=== PATIENT | female | born 1990 | race Caucasian/White ===

== ENCOUNTER 2016-03-24 10:29 | Inpatient (IN) | payer OTHER ==
[~2016-03-24] VITALS: Ht 149.9 cm; Wt 64.0 kg
[2016-03-24 10:44] VITALS: BP 101/58
[2016-03-24] MEDS ORDERED: PRENTAB9 PO (11:09)
--- NOTE | 2016-03-24 11:28 | HPEPDOC ---
Obstetrical History & Physical General Date of Admission Mar 24, 2016 at 10:29 History of Present Illness 25 yo @ 41+1 by LMP([id number]) presents to L&D for scheduled IOL. Denies CTX, DFM, LOF and VB. GBS negative. Chief Complaint: Induction of labor Information Provided By: Patient Age: 25 : 2 Term: 0 Pre-term: 0 Abortions: 1 Livin Care Care: Good Care Number of Visits: 13 Dating Final EDC: Mar 16, 2016 Final EDC for Daily Update: Mar 16, 2016 Final EDC by: LMP LMP: June 10, 2015 Estimated Date of Confinement: Mar 16, 2016 EGA at Admission: 41.1 Antepartum Course Diagnos(e)s 1. Excessive weight gain 2. elevated 1 hour GTT-137; 3 hour normal 91/WRAPPING CLERK/141/135 Height (inches): 59 Pre- weight (lbs.): 100 Admission Weight (lbs.): 150 Change in Weight (lbs.): 51 Past Medical History Past Obstetrical History : Past Obstetrical History: Multigravida Date of Delivery: Feb 19, 2014 Gestation: 9 STACK ATTENDANT History: Spontaneous Past Medical History Medical History Eczema Surgical History: Denies/None Family History Significant Family History: No pertinent family hx Social History Marital Status: Family situation: Spouse/partner home Psychosocial History: No pertinent psych hx * Smoker: non-smoker Alcohol: denies Drugs: denies Abuse Violence Screening Have you been hit/kicked/slapp: No Have you been sexually assault: No Imunizations Tdap status: current ([id number]) Influenza Status: current ([id number]) Allergies Coded Allergies: No Known Drug Allergy (Verified Allergy, Unknown, 03/24/16) Medications Scheduled Multivitamins/ ( 27-0.8 mg) 1 Tab Tab 1 TAB PO DAILY Physical Examination Physical Examination GENERAL: AA&O x 3 BREAST: . ABDOMEN: Gravid and non-tender to touch. FETUS: VTX by SVE and by Alan. HEART RATE: RRR, no m/r/g LUNGS: CTA EXTREMITIES: +1 edema. No clonus. DTR +2 Laboratory Data 24H LABS Laboratory Tests 2 03/24/16 10:43: Serology Scanned Report Hepatitis B Testing Pertinent Laboratoy Data Blood Type: O+ RBC Antibody Screen: Negative HIV: Negative Hepatitis B: Negative Hepatitis C: Unknown Rapid Plasma Reagin: Nonreactive Rubella: Immune Varicella: Immune Chlamydia/Gonorrhea: Negative Group B Streptococcus: Negative Quad Screen Test: Declined Cystic Fibrosis: Negative Glucose Tolerance Test: 137 Anatomy Ultrasound Ultrasound Date: Oct 28, 2015 Placenta Location: Anterior Normal Anatomy: Yes Placenta Previa: No Estimated Weight (grams): 270 Vaginal Examination Dilation: 1cm Effacement: 40-50% Station: -2 Cervical Consistency: Medium Cervical Position: Posterior Presentation: Cephalic presentation Position: Vertex (occiput) Assessment Heart Rate (FHR): 150 Variability: Moderate Accelerations: Present Decelerations: None Tocometer Contractions: No Strength: resting tone palp/soft Multi-drug resistant Organism: No history of MDRO Assessment/Plan Assessment 25 yo @ 41+1 by LMP([id number]) presents to L&D for scheduled IOL. Denies CTX, DFM, LOF and VB. GBS negative. Plan Admit and orient. Storage Facility Housekeeper and consent. Diet: Regular GBS- negative Labs and IV per protocol Counseled on cytotec vs goodman bulb and would like goodman bulb LR 1000 ml bolus, then 125 ml/hr Anticipate C-S as appropriate. STALIN GIBSON CNM Mar 24, 2016 11:28
[2016-03-24] MEDS ORDERED: LACTATED RINGER'S 1000 ML IV STA (11:31)
--- NOTE | 2016-03-24 11:48 | IPNPDOC ---
Obstetrical Progress Note Date of Service The patient was seen on 03/24/16 at 11:44. Progress Note [id number] @ 1145 25 yo @ 41+1 by LMP([id number]) presents to L&D for scheduled IOL. Denies CTX, DFM, LOF and VB. GBS negative. S: comfortable resting in bed with spouse at bedside. Denies CTX O: VS- WNL, afebrile FHR- 150, mod, + accels, no decels CTX- none SVE- 1/50/-2, post/med/vtx EFW-3600 grams Goodman bulb with 60 ml NS placed to traction A: 25 yo @ 41+1 by LMP([id number]) presents to L&D for scheduled IOL. CAT I FHR. P: continue to monitor and assess, reassess goodman bulb Q hour, reassess in 4 hours or prn. VS, I&O, 24H, Fishbone Laboratory Data 24H LABS Laboratory Tests 2 03/24/16 10:43: Serology Scanned Report Hepatitis B Testing STALIN GIBSON CNM Mar 24, 2016 11:48
[2016-03-24 12:34] LABS: MEAN CORPUSCULAR HEMOGLOBIN 31.3 pg (27.0-33.0); MEAN CORPUSCULAR HGB CONC 34.7 g/dl (32.0-36.5); MEAN CORPUSCULAR VOLUME 90.2 fl (80.0-96.0); RED CELL DISTRIBUTION WIDTH 14.2 % (11.5-14.5); WHITE BLOOD COUNT 5.3 K/mm3 (4.0-10.0)
[2016-03-24 12:40] VITALS: BP 122/77
[2016-03-24 14:00] VITALS: BP 112/59
--- NOTE | 2016-03-24 15:18 | IPNPDOC ---
Obstetrical Progress Note Date of Service The patient was seen on 03/24/16 at 15:13. Progress Note [id number] @ 1510 S: pt comfortable, walking halls throughout the day, just got into bed, spouse at bedside O: VS- WNL, afebrile FHR- 145, moderate variability, + accels, no decels CTX- single CTX noted on last FHR tracing, resting tone palpated as soft Goodman bulb assessed, still in cervical os, retaped to traction A: 25 yo @ 41+1 by LMP([id number]) here for scheduled IOL d/t pending post-dates. CAT I FHR. P: continue to monitor and assess, reassess goodman bulb Q 1 hour, continue to perform intermittent monitoring as long as FHR tracing is CAT I, reassess in 4 hours or prn. Remove goodman 2335 if not out, once goodman out start pitocin VS, I&O, 24H, Fishbone Vital Signs/I&O Vital Signs Date Time Temp Pulse Resp B/P Pulse Ox O2 Delivery O2 Flow Rate FiO2 03/24/16 14:00 98.6 75 18 112/59 Laboratory Data 24H LABS Laboratory Tests 2 03/24/16 10:43: Serology Scanned Report Hepatitis B Testing 03/24/16 12:08: Syphilis Serology NONREACTIVE CBC/BMP Laboratory Tests 03/24/16 12:08 Red Blood Count 3.60 L, Mean Corpuscular Volume 90.2, Mean Corpuscular Hemoglobin 31.3, Mean Corpuscular Hemoglobin Concent 34.7, Red Cell Distribution Width 14.2 STALIN GIBSON CNM Mar 24, 2016 15:18
[2016-03-24 15:46] VITALS: BP 114/71
[2016-03-24 16:48] VITALS: BP 102/66
[2016-03-24 17:52] VITALS: BP 114/70
[2016-03-24] MEDS ORDERED: LR 1,000 ML IV SCH (19:06)
[2016-03-24] MEDS ORDERED: OXYTOCIN DRIP 30 UNITS in APPROPRIATE DILUENT 1 EA IV SCH (19:15)
--- NOTE | 2016-03-24 19:21 | IPNPDOC ---
Obstetrical Progress Note Date of Service The patient was seen on 03/24/16 at 19:18. Progress Note [id number] @ 1905 S: pt comfortable, walking halls throughout the day, just went to the bathroom, spouse at bedside O: VS- WNL, afebrile FHR- 145, moderate variability, + accels, no decels CTX- intermittent irregular CTX, lasting <90 sec Gordon out intact A: 25 yo @ 41+1 by LMP([id number]) here for scheduled IOL d/t pending post-dates. CAT I FHR. P: continue to monitor and assess, reassess in 2 hours or prn, initiate pitocin IOL per unit protocol, epidural when pt is ready Report given to Dr. Benitez @ 1930 VS, I&O, 24H, Chloé Vital Signs/I&O Vital Signs Date Time Temp Pulse Resp B/P Pulse Ox O2 Delivery O2 Flow Rate FiO2 03/24/16 18:27 98.1 03/24/16 17:52 78 18 114/70 Laboratory Data 24H LABS Laboratory Tests 2 03/24/16 10:43: Serology Scanned Report Hepatitis B Testing 03/24/16 12:08: Syphilis Serology NONREACTIVE CBC/BMP Laboratory Tests 03/24/16 12:08 Red Blood Count 3.60 L, Mean Corpuscular Volume 90.2, Mean Corpuscular Hemoglobin 31.3, Mean Corpuscular Hemoglobin Concent 34.7, Red Cell Distribution Width 14.2 STALIN GIBSON CNM Mar 24, 2016 19:20
[2016-03-24] MEDS ORDERED: FENTANYL 2MCG/ML ROPIVACAINE 0.2% NACL 250 ML CADD As Ordered ONE (21:25)
[2016-03-24] MEDS ORDERED: ONDANSETRON 4MG/2ML VIAL (J2405) IV PRN (22:45)
[2016-03-24] MEDS ORDERED: EPIDURAL/PCA KEYS XX PRN (22:45)
[2016-03-24] MEDS ORDERED: LACTATED RINGER'S 1000 ML IV PRN (22:45)
[2016-03-24] MEDS ORDERED: EPIDURAL COMMENT XX SCH (22:45)
[2016-03-24] MEDS ORDERED: diphenhydrAMINE INJ 50MG/ML VIAL (J1200) IV PRN (22:45)
[2016-03-24] MEDS ORDERED: NALOXONE INJ 0.4 MG/1 ML VIAL (J2310) IV PRN (22:45)
[2016-03-24] MEDS ORDERED: REFRIGERATOR IV KEYS XX PRN (22:45)
[2016-03-24] MEDS ORDERED: FENTANYL/ROPIVACAINE/NACL CADD 250 ML EPIDURAL SCH (22:45)
[2016-03-25] VITALS (7 sets, daily range): BP systolic 107–133; BP diastolic 53–71
--- NOTE | 2016-03-25 00:05 | IPNPDOC ---
Text Note Date of Service The patient was seen on 03/25/16. NOTE Assumed care 1930 after SBAR from COLLETTE Contreras. IOL at 41+1. Chart reviewed. NST Cat 2 with many early's, some variables and a rare isolated late decel. Mod variab throughout however. Pit decreased ~30 min ago from 10 to 4 mu/min. RN Cx check at 2230 with SROM (clr) was 6 cm. Cx now 6-7/80/-1, can stretch to 8 cm however. My plan is to recheck at 0200, sooner prn. If no signif change will place an IUPC to assist with pit mgmt. Sessions VS,Chloé, I+O VS, Chloé I+O Laboratory Tests 03/24/16 12:08 Red Blood Count 3.60 L, Mean Corpuscular Volume 90.2, Mean Corpuscular Hemoglobin 31.3, Mean Corpuscular Hemoglobin Concent 34.7, Red Cell Distribution Width 14.2 Vital Signs Date Time Temp Pulse Resp B/P Pulse Ox O2 Delivery O2 Flow Rate FiO2 03/24/16 18:27 98.1 03/24/16 17:52 78 18 114/70 I&O- Last 24 Hours up to 6 AM 03/25/16 06:00 Intake Total 462 ml Balance 462 ml SESSIONS,ALBIN Mitchell MD Mar 25, 2016 00:05
--- NOTE | 2016-03-25 03:04 | IPNPDOC ---
Text Note Date of Service The patient was seen on 03/25/16. NOTE NST Cat 1, no issues like previously now that pitocin completely off, has cont' d to contract regularly. Cx 8-9/100/-1 Straight OA recheck in ~2 hrs, sooner prn Sessions VS,Chloé, I+O VS, Chloé I+O Laboratory Tests 03/24/16 12:08 Red Blood Count 3.60 L, Mean Corpuscular Volume 90.2, Mean Corpuscular Hemoglobin 31.3, Mean Corpuscular Hemoglobin Concent 34.7, Red Cell Distribution Width 14.2 Vital Signs Date Time Temp Pulse Resp B/P Pulse Ox O2 Delivery O2 Flow Rate FiO2 03/24/16 18:27 98.1 03/24/16 17:52 78 18 114/70 I&O- Last 24 Hours up to 6 AM 03/25/16 06:00 Intake Total 462 ml Balance 462 ml SESSIONS,ALBIN Mitchell MD Mar 25, 2016 03:04
[2016-03-25] MEDS ORDERED: AMPICILLIN SOD/SULBACTAM SOD 3 GM in D5W MINI-BAG PLUS 100 ML IV SCH (04:00)
[2016-03-25] MEDS ORDERED: ACETAMINOPHEN 500 MG TAB PO ONE (04:15)
--- NOTE | 2016-03-25 05:18 | IPNPDOC ---
Text Note Date of Service The patient was seen on 03/25/16. NOTE Now with fevers, started on Unasyn and also given 975 mg Tylenol NST Cat 2 with tachycardia 170-180's, mostly mod sly, rare random decel Cx 9/100/0 a/p: Possible arrest of dilation and FHT does not allow me to augment her labor with pitocin unfortunately. D/W her that if in 1 hr this cx is still present will need a delivery, possibly sooner if FHT dictates. Watching the FHT closely. Stated understanding. Sessions VS,Chloé, I+O VS, Chloé I+O Laboratory Tests 03/24/16 12:08 Red Blood Count 3.60 L, Mean Corpuscular Volume 90.2, Mean Corpuscular Hemoglobin 31.3, Mean Corpuscular Hemoglobin Concent 34.7, Red Cell Distribution Width 14.2 Vital Signs Date Time Temp Pulse Resp B/P Pulse Ox O2 Delivery O2 Flow Rate FiO2 03/24/16 18:27 98.1 03/24/16 17:52 78 18 114/70 I&O- Last 24 Hours up to 6 AM 03/25/16 06:00 Intake Total 462 ml Balance 462 ml SESSIONS,ALBIN Mitchell MD Mar 25, 2016 05:18
--- NOTE | 2016-03-25 06:08 | IPNPDOC ---
Text Note Date of Service The patient was seen on 03/25/16. NOTE Cx check now with no change. Anteriorly is also now significzntly swollen. Consented for delivery due to arrest of dilation. See consent form. All ???'s answered. Sessions MD TERRY,Chloé, I+O VS, Chloé I+O Laboratory Tests 03/24/16 12:08 Red Blood Count 3.60 L, Mean Corpuscular Volume 90.2, Mean Corpuscular Hemoglobin 31.3, Mean Corpuscular Hemoglobin Concent 34.7, Red Cell Distribution Width 14.2 Vital Signs Date Time Temp Pulse Resp B/P Pulse Ox O2 Delivery O2 Flow Rate FiO2 03/24/16 18:27 98.1 03/24/16 17:52 78 18 114/70 I&O- Last 24 Hours up to 6 AM 03/25/16 06:00 Intake Total 462 ml Balance 462 ml SESSIONS,ALBIN Mitchell MD Mar 25, 2016 06:08
[2016-03-25] MEDS ORDERED: ceFAZolin 2 GM/D5W 50 ML IV BAG (J0690) As Ordered ONE (06:09)
[2016-03-25] MEDS ORDERED: BICITRA 30ML SOLN UDC As Ordered ONE (06:09)
[2016-03-25] MEDS ORDERED: BICITRA 30ML SOLN UDC PO ONE (06:15)
[2016-03-25] MEDS ORDERED: LIDOCAINE 2% W/EPIN INJ 20ML **PRES FREE As Ordered ONE (06:23)
[2016-03-25] MEDS ORDERED: OXYTOCIN INJ 10 UNITS/ML VIAL (J2590) As Ordered ONE ×3 (06:24→07:15)
[2016-03-25] MEDS ORDERED: ESMOLOL INJ 100MG/10ML VIAL As Ordered ONE (06:56)
[2016-03-25] MEDS ORDERED: PHENYLephrine HCL 500 MCG/5 ML (100MCG/ML) SYRINGE (J2370) As Ordered ONE (06:56)
[2016-03-25] MEDS ORDERED: MORPHINE PRES-FREE INJ 10 MG/10 ML VIAL (J2274) As Ordered ONE (07:04)
[2016-03-25] MEDS ORDERED: NALBUPHINE HCL 10 MG/ML AMP (J2300) IV PRN ×2 (07:05→08:00)
[2016-03-25] MEDS ORDERED: NALOXONE INJ 0.4 MG/1 ML VIAL (J2310) IV PRN ×2 (07:05)
[2016-03-25] MEDS ORDERED: ONDANSETRON 4MG/2ML VIAL (J2405) IV PRN ×2 (07:05→08:00)
[2016-03-25] MEDS ORDERED: METOCLOPRAMIDE INJ 10MG/2ML VIAL (J2765) IV PRN ×2 (07:05→08:45)
[2016-03-25] MEDS ORDERED: ONDANSETRON 4MG/2ML VIAL (J2405) As Ordered ONE (07:20)
[2016-03-25] MEDS ORDERED: METOCLOPRAMIDE INJ 10MG/2ML VIAL (J2765) As Ordered ONE (07:20)
[2016-03-25] MEDS ORDERED: KETOROLAC 60 MG/2 ML VIAL (J1885) As Ordered ONE (07:20)
[2016-03-25] MEDS ORDERED: MEPERIDINE 50 MG/ML 1ML VIAL (J2175) As Ordered ONE (07:22)
[2016-03-25 07:42] LABS: CORD GAS HCO3 V 21.2 MEQ/L; CORD GAS PCO2 V 36.1 mmHg; CORD GAS PH V 7.387 UNITS; CORD GAS PO2 V 27.5 mmHg; CORD GAS SBC V 21.1 MEQ/L; CORD GAS TCO2 V 22.3 MEQ/L
[2016-03-25 07:44] LABS: CORD GAS ABE A -2.8; CORD GAS HCO3 A 23.5 MEQ/L; CORD GAS O2 SAT A 51.2 %; CORD GAS PCO2 A 45.9 mmHg; CORD GAS PH A 7.327 UNITS; CORD GAS PO2 A 21.6 mmHg; CORD GAS TCO2 A 24.9 MEQ/L
[2016-03-25] MEDS ORDERED: PERCOCET 5MG/325MG TAB PO PRN ×2 (08:00→08:45)
[2016-03-25] MEDS ORDERED: HYDROmorphone HCL 1 MG/ML SYRINGE (J1170) IV PRN (08:00)
[2016-03-25] MEDS ORDERED: MEPERIDINE INJ 25 MG/ML VIAL (J2175) IV PRN (08:00)
[2016-03-25] MEDS ORDERED: LR 1,000 ML IV SCH (08:00)
[2016-03-25] MEDS ORDERED: fentaNYL 100 MCG/2 ML INJECTION (J3010) IV PRN (08:00)
[2016-03-25] MEDS ORDERED: diphenhydrAMINE INJ 50MG/ML VIAL (J1200) IV PRN (08:00)
[2016-03-25] MEDS ORDERED: RHOGAM 300 MCG (1500 IU) INJ (J2790) IM SCH (08:45)
[2016-03-25] MEDS ORDERED: MEASLES,MUMPS,RUBELLA VACCINE INJ (MMR-II) (90707) SC SCH (08:45)
[2016-03-25] MEDS: DOCUSATE SODIUM 100 MG CAP PO SCH ×2 (09:00→19:52)
[2016-03-25] MEDS: PRENATAL VITAMIN TAB PO SCH (09:00)
[2016-03-25] MEDS: AMPICILLIN SOD/SULBACTAM SOD 3 GM in D5W MINI-BAG PLUS 100 ML IV SCH ×3 (10:46→22:32)
[2016-03-25] MEDS: LR 1,000 ML IV SCH (10:46)
[2016-03-25] MEDS: CLINDAMYCIN 900 MG in APPROPRIATE DILUENT 1 EA IV SCH ×2 (11:46→18:57)
[2016-03-25] MEDS: KETOROLAC 30 MG/ML VIAL (J1885) IV SCH ×2 (14:12→19:52)
[2016-03-26] MEDS: LR 1,000 ML IV SCH (00:42)
[2016-03-26] MEDS: KETOROLAC 30 MG/ML VIAL (J1885) IV SCH ×2 (01:56→08:00)
[2016-03-26 02:00] VITALS: BP 95/50
[2016-03-26] MEDS: CLINDAMYCIN 900 MG in APPROPRIATE DILUENT 1 EA IV SCH (03:56)
[2016-03-26] MEDS: AMPICILLIN SOD/SULBACTAM SOD 3 GM in D5W MINI-BAG PLUS 100 ML IV SCH (05:03)
[2016-03-26 06:07] VITALS: BP 107/58
[2016-03-26 08:17] LABS: MEAN CORPUSCULAR HEMOGLOBIN 32.4 pg (27.0-33.0); MEAN CORPUSCULAR HGB CONC 35.3 g/dl (32.0-36.5); MEAN CORPUSCULAR VOLUME 91.8 fl (80.0-96.0); RED CELL DISTRIBUTION WIDTH 14.6 % (11.5-14.5); WHITE BLOOD COUNT 10.1 K/mm3 (4.0-10.0)
[2016-03-26] MEDS: DOCUSATE SODIUM 100 MG CAP PO SCH ×2 (08:26→21:00)
[2016-03-26] MEDS: PRENATAL VITAMIN TAB PO SCH (08:26)
[2016-03-26 10:00] VITALS: BP 116/65
[2016-03-26] MEDS: PERCOCET 5MG/325MG TAB PO PRN ×2 (10:44→19:01)
[2016-03-26] MEDS: IBUPROFEN 800 MG TAB PO SCH ×2 (10:45→19:01)
[2016-03-26 14:00] VITALS: BP 126/63
[2016-03-26] MEDS ORDERED: IBUPROFEN 800 MG TAB PO SCH (16:00)
[2016-03-26 18:20] VITALS: BP 127/60
[2016-03-26 22:15] VITALS: BP 124/62
[2016-03-27] MEDS: PERCOCET 5MG/325MG TAB PO PRN (01:34)
[2016-03-27] MEDS: IBUPROFEN 800 MG TAB PO SCH ×2 (02:53→11:19)
[2016-03-27 05:33] VITALS: BP 116/69
--- NOTE | 2016-03-27 08:40 | IPNPDOC ---
Text Note Date of Service The patient was seen on 03/27/16. NOTE Post-Op Day 2 Susanna is a 25yo [id number] doing well on post-op day 2 s/p uncomplicated PLTCS indicated for arrest of dilation in the setting of chorioamnionitis at 41w1d when undergoing induction of labor for late term gestation. in NICU to receive antibiotics. She is breast pumping without issue. Lochia normal , spontaneously voiding and ambulating without difficulty. Tolerating regular diet. Denies f/c/n/v/SOB/CP/FARFAN/abdominal pain. Vitals wnl, afebrile Exam: General: WDWN, NAD, resting comfortably Cardiac: S1S2 present, no murmur Lungs: CTAB without wheeze/crackles Abdomen: soft, NTTP, fundus firm u-2cm, pfannensteil intact with steri strips overlying with no surrounding erythema, no drainage Extremities: no tenderness of calves bilaterally Labs: 03/24: H/H 11.3/32.5 03/26: H/H 8.6/24.2 Assessment: Susanna is a 25yo [id number] doing well on post-op day 2 s/p uncomplicated PLTCS indicated for arrest of dilation in the setting of chorioamnionitis at 41w1d when undergoing induction of labor for late term gestation. Vitals wnl, benign exam. No e/o infection, hemodynamically stable. Plan: -discharge to home today vs boarding if infant remains in NICU -Home meds given: percocet, ibuprofen, dibucaine, colace, lanolin, minipill for contraception -Regular diet -Encourage Dr. Nikki Farfan MD [place] HARRY VS,Fishbone, I+O VS, Fishbone, I+O Vital Signs Date Time Temp Pulse Resp B/P Pulse Ox O2 Delivery O2 Flow Rate FiO2 03/27/16 05:33 97.4 70 16 116/69 03/26/16 22:15 99 03/26/16 18:20 Room Air I&O- Last 24 Hours up to 6 AM 03/27/16 06:00 Output Total 350 ml Balance -350 ml NIKKI FARFAN MD Mar 27, 2016 08:40
--- NOTE | 2016-03-27 08:53 | DS.PDOC ---
Discharge Summary General Date of Admission Mar 24, 2016 at 10:29 Date of Discharge Mar 27, 2016 Attending Physician: MIMI FARFAN MD Discharge Summary PROCEDURES PERFORMED DURING STAY: Primary Low Transverse Section COMPLICATIONS/CHIEF COMPLAINT: Induction of labor for late term gestation ADMISSION DIAGNOSES: 1. Late term gestation at 41w1d 2. Arrest of dilation 3. Chorioamnionitis DISCHARGE DIAGNOSES: 1. Late term gestation at 41w1d 2. Arrest of dilation 3. Chorioamnionitis HISTORY OF PRESENT ILLNESS/HOSPITAL COURSE: Susanna is a 25yo [id number] doing well on post-op day 2 s/p uncomplicated PLTCS indicated for arrest of dilation in the setting of chorioamnionitis at 41w1d when undergoing induction of labor for late term gestation. Benign post- operative course. currently in NICU for antibiotics related to chorioamnionitis. Vitals normal, benign exam. No evidence of infection, hemodynamically stable. Ready for discharge. DISCHARGE MEDICATIONS: percocet, ibuprofen, dibucaine, colace, lanolin, minipill for contraception ALLERGIES: Please see below. PHYSICAL EXAMINATION ON DISCHARGE: Vitals wnl, afebrile Exam: General: WDWN, NAD, resting comfortably Cardiac: S1S2 present, no murmur Lungs: CTAB without wheeze/crackles Abdomen: soft, NTTP, fundus firm u-2cm, pfannensteil intact with steri strips overlying with no surrounding erythema, no drainage Extremities: no tenderness of calves bilaterally LABORATORY DATA: Labs: 03/24: H/H 11.3/32.5 03/26: H/H 8.6/24.2 IMAGING: none VTE Prophylaxis ordered?: none required DISCHARGE CONDITION: Stable DISPOSITION: home vs boarding while is in the NICU ACTIVITY: vaginal rest x 6 weeks DIET: regular DISCHARGE PLAN AND INSTRUCTIONS: Discharge to home vs boarding with follow up visit for incision check in 2 weeks and then routine post- visit in 6 weeks Return to clinic or ER for fevers/chills/vomiting/vaginal bleeding more than 1 heavy pad per hour, pain that is increasing despite pain medications TIME SPENT ON DISCHARGE: Greater than [address] Mimi Farfan MD [place] [facility] Vital Signs/I&Os Vital Signs Date Time Temp Pulse Resp B/P Pulse Ox O2 Delivery O2 Flow Rate FiO2 03/27/16 05:33 97.4 70 16 116/69 03/26/16 22:15 99 03/26/16 18:20 Room Air I&O- Last 24 Hours up to 6 AM 03/27/16 06:00 Output Total 350 ml Balance -350 ml Medications Scheduled Multivitamins/ ( 27-0.8 mg) 1 Tab Tab 1 TAB PO DAILY Allergies Coded Allergies: No Known Drug Allergy (Verified Allergy, Unknown, 03/24/16) MIMI FARFAN MD Mar 27, 2016 08:53
[2016-03-27] MEDS: PRENATAL VITAMIN TAB PO SCH (08:57)
[2016-03-27] MEDS: DOCUSATE SODIUM 100 MG CAP PO SCH (08:57)
[2016-03-27] MEDS ORDERED: COLA100C PO (09:15)
[2016-03-27] MEDS ORDERED: IBUP-1114 PO (09:16)
[2016-03-27] MEDS ORDERED: OXYC1TAB23 PO (09:17)
--- NOTE | 2016-03-27 09:32 | RO ---
DATE OF PROCEDURE: 03/25/2016 PREPROCEDURE DIAGNOSES: Arrest of dilation at 9 cm with condition of inability to augment, also meconium and chorioamnionitis present. POSTPROCEDURE DIAGNOSES: Arrest of dilation at 9 cm with condition of inability to augment, also meconium and chorioamnionitis present. PROCEDURE: Primary delivery. SURGEON: Dr. Greg Benitez. CARDIOLOGY PHYSICIAN ASSISTANT: Ms. Ginna Swartz, electroencephalograph technician. ANESTHESIA: Epidural with Duramorph. ESTIMATED BLOOD LOSS: 700 mL. DRAINS: 125 mL of clear urine in the Gordon catheter. FLUID REPLACED: 1500 mL of lactated ringers. SPECIMENS: Cord gases and placenta. INDICATION FOR PROCEDURE: Patient made steady progress up until 8-9 cm at which point, she never progressed past 9 over a several hour time span. Along the course of her labor, her Pitocin had been started, decreased and eventually stopped due to heart tracing signs that did not allow for continued Pitocin administration. When the Pitocin was off, the did well other than a tachycardia which was noted when mother also developed a fever. Approximately 1 hour before deciding for sure on the need for , the patient was 9 cm and zero station and given her exam likely would have responded well to Pitocin, however, with the tachycardia present, I could not proceed forward with Pitocin augmentation. Despite Pitocin not being on board, the patient continued to contract regularly every 2 minutes and after 1 hour of watching the tracing closely, there was no change and the anterior lip of the cervix was significantly swollen which had not been present an hour prior. delivery was recommended. Informed consent was obtained. All the patient's questions were answered and she was taken to the operating room once all preparations were made. DESCRIPTION: Gordon catheter was already in place. She was placed in dorsal supine position with a leftward tilt. Legs were strapped. Patient was then prepped and draped in normal sterile fashion. After confirming that the epidural was working adequately, a Pfannenstiel skin incision was carried down to the layer of the fascia which was nicked in the midline and extended bilaterally the extent of the skin incision. Using Carisa clamps, the superior aspect of the fascial incision was tented up and the underlying rectus muscles were dissected out sharply. This was repeated inferiorly without difficulty. The rectus muscles were in the midline. The peritoneal cavity was bluntly entered with the surgeon's digit and a gentle stretching maneuver created an adequate peritoneal window. Bladder blade was placed. Bladder flap was easily created and a low transverse uterine incision was then performed after confirming that resuscitation team was present. Thick meconium was noted and we therefore moved quickly elevating the vertex and with fundal pressure, the infant was easily delivered through the hysterotomy. The infant was noted to have a spontaneous cry, to be in good shape with good tone as well at this point. The cord was clamped times two and cut and my certified ophthalmic surgical assistant carried the over the resuscitation table where Dr. Kimball was present and waiting. Cord gases were obtained which were normal with an arterial pH of 7.327 and a base excess of -2.8 and a venous pH of 7.387 and a base excess of -3. Cord blood was obtained. The placenta was delivered with traction and fundal massage with Pitocin running wide open. The placenta will be sent for pathologic examination. The uterus was exteriorized, wrapped in a warm sponge and cleared of all clots and debris times two with dry sponges. Hysterotomy was then closed with a running locked suture of #0 Vicryl from left to right and a imbrication stitch of #0 Monocryl. Hemostasis obtained. Irrigation was performed behind the uterus. The uterus was returned to its anatomical state and the pericolic gutters were cleared bilaterally. One final inspection of the incision site showed hemostasis. The peritoneum was closed due to the patient bearing down and a significant diastasis. This was done with a running stitch and three Sofía's elevating the peritoneal edges. The inferior was closed without difficulty. The fascia was then closed from left to right with a running suture of #0 Vicryl without difficulty. The subcutaneous tissues were copiously irrigated and made to be hemostatic and closed with a running #2-0 Vicryl. The skin was closed with a running subcuticular #4-0 Monocryl from left to right without difficulty. Steri-Strips were placed as well as a pressure dressing. The fundus was firm in a U minus 2 before leaving the operating room. Overall the was uncomplicated and all sponge, needle and instrument counts were correct times three including a full extra count until the off-going shift members could leave the operating room and be relieved by an oncoming perinatal technician and acquisition advisor. The patient will be maintained on Unasyn and I will add clindamycin to the mix due to the need for operative intervention for delivery. These will be made until the patient is 24 hours afebrile.
--- NOTE | 2016-03-28 02:29 | IPN ---
DATE: 03/26/2016 day #1. This lady had a primary section for arrest of dilatation at 9 cm, inability to augment, meconium, and chorioamnionitis. She did have an elevated temperature of 100.0. On section, was found to have a tightly wedged-in head in the pelvis, uncomplicated primary section, female, scores of 9 and 9 at one and five minutes respectively, 8 pounds, 0 ounces, 3620 grams. Arterial pH 7.32, base excess -2.8, venous pH 7.38, base excess -3.0. She had been on antibiotics for 24 hours, which will discontinue. She has not had a temperature since delivery. Her blood pressure today is 107/58, respirations 16, pulse 85, temperature is 97.4. Her admitting hemoglobin was 11.3, hematocrit 32.5, platelets are 201. White count is 5.3. ON EXAMINATION: Today, she is normocephalic, atraumatic. Neck full range of motions. Pupils equal and reactive to light. Thyroid is normal. No jugular venous distention (JVD), bruits. Lungs are clear bilaterally to bases. No wheezes or rhonchi. Distal pulses symmetric. No evidence of deep venous thrombosis (DVT), pulmonary embolism (PE), or superficial phlebitis. Patient is back and forth to the nursery as baby is in the intensive care unit (NICU). Abdomen is soft. Four-quadrant bowel sounds are noted. Incision is clean and dry. Uterus 2 below. Lochia is moderate. No rashes or lesions or pruritus. No arthralgia, myalgia. No complaints of cough, wheezes, shortness of breath, or dyspnea on exertion. No bleeding. Neurologically complete. No incontinence, urgency, frequency. No nausea, vomiting, diarrhea, or constipation. PLAN OF MANAGEMENT: Is to discontinue the antibiotics. Follow with discharge tomorrow. Medications will be dispensed upon discharge.
== END 2016-03-27 12:00 | disposition home or self-care (01) | DRG 765 ==
LOC: M LDI 10:29 → M OBS 03-25 09:03
PROVIDERS: ADMIT Midwife; ATTEND Obstetrics & Gynecology
PROC: 3E0134Z Introduction of Serum, Toxoid and Vaccine into Subcutaneous Tissue, Percutaneous Approach (ICD-10-PCS; 2016-03-24)
PROC: 10D00Z1 Extraction of Products of Conception, Low, Open Approach (ICD-10-PCS; principal; 2016-03-25)
DX: O48.0 Post-term pregnancy (principal); O41.1230 Chorioamnionitis, third trimester, not applicable or unspecified; O26.03 Excessive weight gain in pregnancy, third trimester; Z3A.41 41 weeks gestation of pregnancy; O62.0 Primary inadequate contractions; O64.0XX0 Obstructed labor due to incomplete rotation of fetal head, not applicable or unspecified; O76 Abnormality in fetal heart rate and rhythm complicating labor and delivery; O77.0 Labor and delivery complicated by meconium in amniotic fluid; Z37.0 Single live birth